=== PATIENT | female | born 2005 | race Two or more races ===

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

== ENCOUNTER 2025-03-10 12:32 | Emergency (ER) | payer OTHER, SELFPAY ==
[2025-03-10 12:41] VITALS: BP 99/61; PULSE 100; RESP 18; TEMP 36.6; O2SAT 99; BMI 23.0
--- NOTE | 2025-03-10 12:41 | ED.GENADULT ---
HPI - General Adult General Chief complaint: Abdominal Pain Stated complaint: Diarrhea, Vomittig w/ blood, N, Stomach pain x3 Time Seen by Provider: 03/10/25 16:21 Source: patient Mode of arrival: ambulatory Limitations: no limitations History of Present Illness ED Provider: Dr. Smith [facility] narrative: This is a 19-year-old female history of gastric reflux presented hospital today for epigastric pain and nausea and vomiting. Patient has also been having diarrhea for the past 3 days. The patient stated that she has been vomiting profusely. Every single time she eats her symptoms worsened. She has been having uncontrolled diarrhea as well. Did not take any medicine. She is complaining of increased abdominal pain in the epigastric area. She did take 40 mg omeprazole recently which did help with her symptoms. Related Data Previous Rx's ?Medication ?Instructions ?Recorded amoxicillin 500 mg-potassium 1 tab PO BID #14 tabs 01/28/22 clavulanate 125 mg tablet (Augmentin) ketorolac 10 mg tablet 10 mg PO Q6H 5 days #20 tabs 01/28/22 ondansetron 4 mg disintegrating 4 mg PO Q8H PRN nausea and 01/28/22 tablet vomiting #10 tabs dicyclomine 10 mg capsule 10 mg PO TID PRN abdominal pain 03/10/25 #20 caps loperamide 2 mg capsule (Imodium 2 mg PO Q4H PRN loose stool #20 03/10/25 A-D) caps omeprazole 20 mg capsule,delayed 20 mg PO BID 15 days #30 caps 03/10/25 release omeprazole 40 mg capsule,delayed 40 mg PO DAILY 30 days #30 caps 03/10/25 release ondansetron 4 mg disintegrating 4 mg PO Q8H PRN nausea and 03/10/25 tablet vomiting #14 tabs sucralfate 1 gram tablet (Carafate) 1 g PO BID 15 days #30 tabs 03/10/25 Allergies Allergy/AdvReac Type Severity Reaction Status Date / Time No Known Allergies Allergy Verified 03/10/25 12:42 Review of Systems Review of Systems: Pertinent review of systems as mentioned in HPI. All other system otherwise negative. [facility] Past Medical History [facility] Narrative: Medical history as mentioned in [facility] Social History Social History (Reviewed 01/28/22 @ 01:32 EST by Merle Elliott MD) Advance Directives: No Advance Directives Information Provided: Yes Do you have a plan to hurt others: No Plan Physical Exam ED Exam Exam: General: Pleasant, no distress, interacting appropriately Head: Normacephalic, atraumatic ENT: oral mucosa moist, neck supple, no tracheal deviation Gastrointestinal: Soft, non distended, pain more so in the epigastric area. Some mild umbilical tenderness on palpation Neurological: Awake and alert, no facial droop noted Skin: Warm and dry Psychiatric: Appropriate mood and thoughts Vital Signs: Vital Signs - 24 hr 03/10/25 12:41 03/10/25 17:03 03/10/25 18:10 Temperature 97.8 F 98.0 F 97.7 F Pulse Rate 100 82 70 Respiratory Rate 18 16 16 Blood Pressure 99/61 99/48 L 92/48 L Pulse Oximetry 99 100 100 Oxygen Delivery Method Room Air Room Air Room Air 03/10/25 19:21 Temperature Pulse Rate 88 Respiratory Rate 18 Blood Pressure 105/64 Pulse Oximetry 100 Oxygen Delivery Method Room Air BMI result Body Mass Index 23.0 Course Course Course Narrative: This is a rapid medical exam performed by Diego Mcintyre NP: Additional HPI, ROS, PE not included below will be deferred to primary provider. Patient is a 19-year-old female presenting with complaint of nausea, vomiting, diarrhea for the past 3 days. Has noticed some specks of blood in the emesis. Complains of generalized abd pain and body aches. Plan: labs, viral serology Medications Administered Discontinued Medications Generic Name Dose Route Start Last Admin Trade Name Freq PRN Reason Stop Dose Admin Al Hydroxide/Mg Hydroxide 30 ml 03/10/25 16:49 03/10/25 17:45 Magnesium Hydrox/Alum Hydrox 30 Ml Oral.Susp PO 03/10/25 16:50 30 ml ONCE ONE Administration Al Hydroxide/Mg Hydroxide 15 ml 03/10/25 20:10 03/10/25 20:25 Magnesium Hydrox/Alum Hydrox 30 Ml Oral.Susp PO 03/10/25 20:11 Not Given ONCE ONE Dicyclomine HCl 10 mg 03/10/25 20:10 03/10/25 20:25 Dicyclomine Hcl 10 Mg Capsule PO 03/10/25 20:11 Not Given ONCE ONE Famotidine 20 mg 03/10/25 16:48 03/10/25 17:09 Famotidine/Pf 20 Mg/2 Ml Vial IVPUSH 03/10/25 16:49 20 mg ONCE ONE Administration Sodium Chloride 1,000 mls @ 999 mls/hr 03/10/25 16:30 03/10/25 18:09 Ns IV 03/10/25 17:30 Infused .Q1H1M ADEEL Infusion Sodium Chloride 1,000 mls @ 999 mls/hr 03/10/25 18:30 03/10/25 19:30 Ns IV 03/10/25 19:30 Infused .Q1H1M ADEEL Infusion Lidocaine HCl 15 ml 03/10/25 16:49 03/10/25 17:45 Lidocaine Hcl Viscous 2 % 15 Ml Solution MUCOUS MEM 03/10/25 16:50 15 ml ONCE ONE Administration Loperamide HCl 6 mg 03/10/25 16:49 03/10/25 17:45 Loperamide Hcl 2 Mg Capsule PO 03/10/25 16:50 6 mg ONCE ONE Administration Ondansetron HCl 4 mg 03/10/25 16:22 03/10/25 17:09 Ondansetron Hcl 4 Mg/2 Ml Vial IVPUSH 03/10/25 16:23 4 mg ONCE ONE Administration Sucralfate 1 gm 03/10/25 16:48 03/10/25 17:46 Sucralfate 1 Gm Tablet PO 03/10/25 16:49 1 gm ONCE ONE Administration Medical Decision Making Medical Decision Making [facility] Narrative: 19-year-old female presented hospital today for nausea vomiting and diarrhea for the past 3 days. She does have history of gastric reflux. I suspect this is likely gastritis versus gastroenteritis. We will plan to give patient IV Pepcid, Carafate will be given to the patient's PO, IV Zofran and IV fluid be given to the patient. Once the patient's nausea is controlled we will challenge her with viscous lidocaine and Maalox to see if this will help with her pain. On her abdominal exam patient is more tender in the epigastric area. Patient stated that she is due for her menses on Saturday. Patient's UA did show signs of blood. Otherwise hemoglobin stable. I suspect patient has blood from her emesis is likely from Tonie-Montgomery tear. The patient appears to be stable in no acute distress on my evaluation. Patient is still complaining of pain at this time. Was able to eat some crackers and putting and hold it down. Plan to give patient some p.o. Bentyl. We will start patient on omeprazole, Carafate, Bentyl. GI referral will be provided the patient, work excuse note will be provided as well. Differential Diagnosis Differential Diagnoses: The differential diagnosis associated with the presentation includes Tonie-Montgomery tear, gastritis, gastroenteritis, dehydration Lab Data MDM Lab Attestation statement: I reviewed the patient's lab results. 03/10/25 13:05 03/10/25 13:05 Labs: Lab Results 03/10/25 Range/Units 13:05 WBC 8.3 (4.8-10.8) X10*3/uL RBC 4.14 L (4.20-5.50) X10*6/uL Hgb 12.4 (12.0-16.0) g/dl Hct 38.4 (37.0-47.0) % MCV 92.8 (80.0-98.0) fL MCH 30.0 (27.0-33.0) pg MCHC 32.3 (31.0-35.0) g/dl RDW 12.4 (11.0-16.0) % Plt Count 316 (160-400) X10*3/uL MPV 9.8 (9.4-12.3) fL Immature Gran % (Auto) 0.2 (0.0-0.4) % Neut % (Auto) 66.0 (45-73) % Lymph % (Auto) 23.0 (20-40) % [place] % (Auto) 8.5 (2-11) % Eos % (Auto) 2.1 (0-4) % Baso % (Auto) 0.2 (0-2) % Lymph # (Auto) 1.9 (1.2-4.9) X10*3/uL [place] # (Auto) 0.7 (0.1-1.2) X10*3/uL Eos # (Auto) 0.2 (0.0-0.4) X10*3/uL Baso # (Auto) 0.0 (0.0-0.2) X10*3/uL Abs Immat Gran (auto) 0.02 (0.00-0.03) X10*3/uL Absolute Neuts (auto) 5.5 (2.0-8.3) x10*3/uL Absolute Nucleated RBC 0.000 (0.0-0.012) X10*3/uL Nucleated RBC % (auto) 0.0 (0.0-0.2) /100WBC Sodium 136 (135-145) mmol/L Potassium 4.0 (3.3-5.1) mmol/L Chloride 107 (96-108) mmol/L Carbon Dioxide 22 (22-29) mmol/L Anion Gap 11 L (12-20) BUN 10 (9-16) mg/dL Creatinine 0.71 (0.5-1.4) mg/dL Estim Creat Clear Calc 90.0 Estimated GFR > 60 Random Glucose 98 (60-115) mg/dL Calcium 9.1 (8.4-10.2) mg/dL Magnesium 1.9 (1.6-2.6) mg/dL Total Bilirubin 0.5 (0.0-1.0) mg/dL AST 23 (5-31) U/L ALT 17 (0-31) U/L Alkaline Phosphatase 59 (39-117) U/L Total Protein 7.5 (6.5-8.0) g/dL Albumin 4.5 (3.5-5.0) g/dL Beta HCG, Quant < 2 mIU/mL Urine Color Yellow Urine Appearance Cloudy Urine pH 5.5 (5.0-9.0) Ur Specific [place] 1.025 (1.005-1.025) Urine Protein Trace (Neg-Trace) mg/dL Urine Glucose (UA) Negative (Negative) mg/dL Urine Ketones Negative (Negative) mg/dL Urine Blood Moderate (2+) H (Negative) Urine Nitrite Negative (Negative) Ur Leukocyte Esterase Negative (Negative) Urine RBC 11-20 H (0-2) /HPF Urine WBC 0-5 (0-5) /HPF Ur Squamous Epith Cells 6-10 (0-2) /HPF Urine Bacteria None Seen (None Seen) Hyaline Casts 0-2 (0-2) /LPF Influenza Type A (PCR) NEGATIVE (Negative) Influenza Type B (PCR) NEGATIVE (Negative) RSV RNA Qual (PCR) NEGATIVE (Negative) SARS-CoV-2 RNA (RT-PCR) NEGATIVE (Negative) Discharge Plan Discharge Clinical Impression: Gastritis Qualifiers: Gastritis type: unspecified gastritis Chronicity: acute Gastritis bleeding: without bleeding Qualified Code(s): K29.00 - Acute gastritis without bleeding Patient Disposition: Home, Self-Care Instructions: Gastritis (ED), Diet for Stomach Ulcers and Gastritis (ED) Prescriptions: New omeprazole 20 mg capsule,delayed release(DR/EC) 20 mg PO BID 15 Days Qty: 30 0RF loperamide [Imodium A-D] 2 mg capsule 2 mg PO Q4H PRN (Reason: loose stool) Qty: 20 0RF Rx Instructions: administer after each loose stool until symptoms controlled; do not exceed 8 mg per 24 hrs sucralfate [Carafate] 1 gram tablet 1 g PO BID 15 Days Qty: 30 0RF ondansetron 4 mg tablet,disintegrating 4 mg PO Q8H PRN (Reason: nausea and vomiting) Qty: 14 0RF dicyclomine 10 mg capsule 10 mg PO TID PRN (Reason: abdominal pain) Qty: 20 0RF omeprazole 40 mg capsule,delayed release(DR/EC) 40 mg PO DAILY 30 Days Qty: 30 0RF No Action amoxicillin-pot clavulanate [Augmentin] 500-125 mg tablet 1 tab PO BID Qty: 14 0RF ketorolac 10 mg tablet 10 mg PO Q6H 5 Days Qty: 20 0RF ondansetron 4 mg tablet,disintegrating 4 mg PO Q8H PRN (Reason: nausea and vomiting) Qty: 10 0RF Referrals: Nikita Mullins MD [Physician, Gastroenterology] Clinical Impression: Gastritis Stand Alone Forms: Work/School Release Interventions: ED Discharge Assessment Last Done: 03/10/25 20:31 Print Language: Egyptian
[2025-03-10 13:12] LABS: MANUAL DIFF FLAG NO
[2025-03-10 13:19] LABS: Hematocrit 38.4 % (37.0-47.0); Hemoglobin 12.4 g/dl (12.0-16.0); Imm Gran Abs Auto 0.02 X10*3/uL (0.00-0.03); Imm Gran Pct Auto 0.2 % (0.0-0.4); Lymphocytes Absolute Auto 1.9 X10*3/uL (1.2-4.9); Mean Corpuscular HGB Conc 32.3 g/dl (31.0-35.0); Mean Corpuscular Hemoglobin 30.0 pg (27.0-33.0); Mean Corpuscular Volume 92.8 fL (80.0-98.0); NRBC Abs Auto 0.000 X10*3/uL (0.0-0.012); NRBC Pct Auto 0.0 /100WBC (0.0-0.2); Platelet Count 316 X10*3/uL (160-400); Red Blood Count 4.14 X10*6/uL (4.20-5.50); White Blood Count 8.3 X10*3/uL (4.8-10.8)
[2025-03-10 13:25] LABS: Appearance Urine Cloudy; Glucose Urine UA Negative (Negative); PH 5.5 (5.0-9.0); Specific Gravity - Urine 1.025 (1.005-1.025); UMIC TRIGGER UACC YES
[2025-03-10 13:43] LABS: Alanine Aminotransferase 17 U/L (0-31); Albumin Level 4.5 g/dL (3.5-5.0); Alkaline Phosphatase 59 U/L (39-117); Anion Gap 11 (12-20); Aspartate Amino Transferase 23 U/L (5-31); Blood Urea Nitrogen 10 mg/dL (9-16); Calcium 9.1 mg/dL (8.4-10.2); Carbon Dioxide 22 mmol/L (22-29); Chloride 107 mmol/L (96-108); Creatinine Clr Calc Pharmacy 90.0; Estimated Glomerular Filt Rate > 60; Magnesium 1.9 mg/dL (1.6-2.6); Potassium 4.0 mmol/L (3.3-5.1); Sodium 136 mmol/L (135-145); Total Protein 7.5 g/dL (6.5-8.0)
[2025-03-10 13:51] LABS: Resp Syncy Virus RNA Qual PCR NEGATIVE (Negative); SARS COV2 PCR INHOUSE NEGATIVE (Negative)
[2025-03-10 17:03] VITALS: BP 99/48; PULSE 82; RESP 16; TEMP 36.7; O2SAT 100
[2025-03-10] MEDS: Lidocaine HCl Viscous 2 % 15 ML SOLUTION MUCOUS MEM (17:45)
[2025-03-10] MEDS: Magnesium Hydrox/Alum Hydrox 30 ML ORAL.SUSP PO (17:45)
[2025-03-10 18:10] VITALS: BP 92/48; PULSE 70; RESP 16; TEMP 36.5; O2SAT 100
[2025-03-10 19:21] VITALS: BP 105/64; PULSE 88; RESP 18; O2SAT 100
--- NOTE | 2025-03-10 19:50 | PC.NURSE ---
Attempted to discharge the patient home. Patient reports after I ate the saltines, my pain is back a little bit . Patient is cooperative, no vomiting since treatment. Reports 'urge' to use the bathroom for a bowel movement. Dx gastritis. Vitals stable. Brothers at bedside are inquisitive, asking many questions about discharge medications, diet, etc. 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 Brother requesting Rx for certain medications and discussed this with Dr. Smith. Patient & brothers requesting to speak with Dr. Smith regarding concerns including worsening pain. Dr. Smith aware. Care ongoing by this RN.
--- NOTE | 2025-03-10 20:11 | PC.NURSE ---
Dr. Smith went to bedside to speak with the patient and family. Dr. Smith ordering additional medications to alleviate ongoing GI discomfort, to be administered as ordered. Brother remains at bedside. quality control assistant (Perlita Ramos) aware of updated plan.
[2025-03-10 20:31] VITALS: BP 105/64; PULSE 88; RESP 18; TEMP 36.8; O2SAT 100
--- OUTSIDE RECORDS SUMMARY | 2025-03-10 20:57 | XMS_ITS | Data Portability ---
Author Organization [facility] [id number] Address [address] [place] [address] Assessment No assessment recorded. Plan of Treatment Reminders Order Date Submit Date Provider Last Modified By Organization Details Last Modified Time Details Appointments None record ed. Lab None record ed. Referral None record ed. Procedures None record ed. Surgeries None record ed. Imaging None record ed. Medication Orders None record ed. Patient TargetsNo targets recorded. Patient InstructionsNo instructions recorded. Reason for Referral None Reported. Procedures Surgical History Date Name Laterality Status Provider Name and Address Organization Details Recorded Time OC-UDS Send Out Template NON DOT completed CLARA [facility] 03/14/2022 13:30:09 Imaging Results None recorded. Procedure Notes None recorded. Medical Equipment None Reported. Medications Name Sig Start Date Stop Date Status Note LastModified by Organization Details LastModified Time ketoconazole 2 % shampoo APPLY DAILY FOR 3 DAYS, LEAVE ON SKIN FOR 5 MINS THEN RINSE OFF. active Not Available Not Available N ot Available cetirizine 10 mg tablet TAKE 1 TABLET BY MOUTH EVERY DAY FOR 30 DAYS active Not Available Not Available No t Available meclizine 12.5 mg tablet TAKE 1 TABLET BY MOUTH EVERY 8 TO 12 HOURS NEEDED active Not Available Not Available No t Available ketorolac 10 mg tablet TAKE 1 TABLET BY MOUTH EVERY 6 HOURS X5 DAYS active Not Available Not Available No t Available meclizine 25 mg tablet TAKE 1 TABLET BY MOUTH ONCE active Not Available Not Available N ot Available epinephrine 0.3 mg/0.3 mL injection, auto-injecto r PLEASE SEE ATTACHED FOR DETAILED DIRECTIONS active Not Available Not Available N ot Available ondansetron 4 mg disintegrati ng tablet DISSOLVE 1 TABLET BY MOUTH EVERY 8 HOURS NEEDED FOR NAUSEA/VOMI TING active Not Available Not Available No t Available clotrimazole 1 % topical cream APPLY 1 APPLICATION TOPICALLY 2 TIMES A DAY, FOR 21 DAYS, TO LESION ON CHEST active Not Available Not Available No t Available amoxicillin 500 mg-potassium clavulanate 125 mg tablet TAKE 1 TABLET BY MOUTH TWICE A DAY active Not Available Not Available No t Available Vitals None Recorded Social History None recorded. Functional Status None recorded. Mental Status None recorded. Family History Nothing Reported. Medical History No medical history recorded. Gynecological HistoryNo gynecological history recorded. Obstetrics History GPAL:G 0 P 0 0 0 0 Past Encounters Encounter ID Performer Location Encounter Start Date Encounter Closed Date Diagnosis/Indication Diagnosis SNOMED-CT Code Diagnosis ICD10 Code Diagnosis IMO Codes Diagnosis Note [id number] [address] [place] [phone] 04/17/2017 18:23:31 04/17/2017 19:53:05 [id number] [address] [address] [place] [phone] 08/19/2017 13:40:20 08/19/2017 15:45:10 [id number] KRYSTYNA HARVEY MD [address] [place] [address] 03/14/2022 11:52:58 03/14/2022 13:58:00 History and physical examination, pre-employment 308737346 Z02.1 Health Concerns Section Related Observation LastModified by Organization Detai ls LastModified Time None Recorded Concern Status LastModified by Organization Details LastModified Time None Recorded Advance Directives Directive None Recorded Payers Insurance Date Sequence Insurance Name Policy Number Policy [place] Covered Member ID [place] Member ID Guarantor Name 03/14/2022 1 [facility] (MEDICAID HMO) [id number] Mario Padilla [id number] Juan Aljuboori 03/14/2022 OC[facility]CREEN Mario Padilla [facility] Juan Aljuboori OBGyn Episode No OBEpisode recorded.
--- OUTSIDE RECORDS SUMMARY | 2025-03-10 20:57 | XMS_ITS | Clinical Summary ---
Author Organization [facility] ity Address [address] [place] [address] Care Team Providers Care Transport Nurse Name Role Phone Unavailable Primary Care Provider Unavailabl e Social History Tobacco Use Types Packs/Day Years Used Date Smoking Tobacco: Never Assessed Comments Unknown Sex and Gender Information Value Date Recorded Sex Assigned at Not on file Legal Sex Female 9:35 AM EST Gender Identity Not on file Sexual Orientation Not on file Plan of Treatment Health Maintenance Due Date Last Done Comments Gonorrhea/Chlamydia Screening 2003 HPV Vaccines (1 - 3-dose series) 2018 Meningococcal B Vaccine (1 o f 2 - Standard) 2019 DTaP,Tdap,and Td Vaccines (1 - Tdap) 2022 Hepatitis B Vaccines (1 of 3 - 19+ 3-dose series) 2022 Depression Screening 03/25/2024 Cervical Cancer Screening: P ap Smear 2024 COVID-19 Vaccine (1 - 2024-2 6 season) 2024 Influenza Vaccine (#1) 2024 RSV Immunization Adult Patie nts (1 - 1-dose 75+ series) 2078 HIB Vaccines Aged Out No longer eligi ble based on patient's age to complete this topic Hepatitis A Vaccines Aged Out No long er eligible based on patient's age to complete this topic IPV Vaccines Aged Out No longer eligi ble based on patient's age to complete this topic MMR Vaccines Aged Out No longer eligi ble based on patient's age to complete this topic Meningococcal ACWY Vaccine Aged Out N o longer eligible based on patient's age to complete this topic Pneumococcal Vaccine: Pediat rics (0 to 5 Years) and At-Risk Patients (6 to 49 Years) Aged Out No longer eligible b ased on patient's age to complete this topic RSV Immunization Patients Un shivam 20 months Aged Out No longer eligible b ased on patient's age to complete this topic Varicella Vaccines Aged Out No longer eligible based on patient's age to complete this topic
== END 2025-03-10 20:36 | disposition home or self-care (01) ==
PROVIDERS: Registered Nurse Emergency; Emergency Provider Student in an Organized Health Care Education/Training Program; PCP Internal Medicine
DX: K29.00 Acute gastritis without bleeding (principal); R11.0 Nausea; Z03.818 Encounter for observation for suspected exposure to other biological agents ruled out; Z79.899 Other long term (current) drug therapy
CPT/HCPCS: 80053; 81001; 83735; 84702; 85025; 87637; 96361; 96374; 96375; 99283; 99284; J1308; J2405